=== PATIENT | female | born 1990 | race Two or more races ===

== ENCOUNTER 2019-02-24 15:11 | Emergency (ER) | payer OTHER ==
[~2019-02-24] VITALS: Ht 160 cm; Wt 69.4 kg
[2019-02-24 15:19] VITALS: BP 136/80
[2019-02-24] MEDS ORDERED: CYCLOBENZAPRINE 10 MG TABLET. PO ONE (16:00)
[2019-02-24] MEDS ORDERED: KETOROLAC 30 MG/ML VIAL. IM ONE (16:00)
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
[2019-02-24] MEDS ORDERED: CYCL10TA2 PO (16:32)
[2019-02-24] MEDS ORDERED: IBUP-1060 PO (16:32)
== END 2019-02-24 16:41 | disposition home or self-care (01) ==
LOC: ER 15:11
DX: M25.512 Pain in left shoulder (principal); M79.642 Pain in left hand; V43.52XA Car driver injured in collision with other type car in traffic accident, initial encounter; Y93.89 Activity, other specified; Y92.410 Unspecified street and highway as the place of occurrence of the external cause; Y99.8 Other external cause status
CPT/HCPCS: 73000; 73030; 73060; 96372; 99284; J1885